=== PATIENT | female | born 1945 | race American Indian/Alaskan Native ===

== ENCOUNTER 2016-04-14 09:13 | Day surgery (SDC) | payer MEDICARE ==
[2016-04-14] MEDS ORDERED: NACL 0.9% 1000 ML 1,000 ML IV SCH (10:00)
[2016-04-14] MEDS ORDERED: WATER FOR IRRIG STERILE IR ONE (10:46)
[2016-04-14] MEDS ORDERED: DIPRIVAN 10 MG/ML IV ONE ×3 (10:48→12:56)
--- NOTE | 2016-04-14 10:49 | Anesthesia Consultation ---
Anesthesia Consult and Med Hx Date of service: 04/14/16 - Airway Anesthetic Teeth Evaluation: Good ROM Head & Neck: Adequate Mental/Hyoid Distance: Inadequate Mallampati Class: Class II Intubation Access Assessment: Probably Good - Pulmonary Exam CTA: Yes - Cardiac Exam Cardiac Exam: RRR - Pre-Operative Health Status ASA Pre-Surgery Classification: ASA3 Proposed Anesthetic Plan: MAC - Pulmonary Hx Smoking: Yes (prior smoker quit >20 years) - Cardiovascular System Hx Hypertension: Yes - Central Nervous System Hx Neuromuscular Disorder: No - Gastrointestinal Hx Gastroesophageal Reflux Disease: Yes (mild) - Endocrine Hx Insulin Dependent Diabetes: Yes Hx Hypothyroidism: Yes - Hematic Hx Anemia: No Hx Sickle Cell Disease: No - Other Systems Hx Alcohol Use: No Hx Substance Use: No Hx Cancer: No Hx Obesity: No - Additional Comments Anesthesia Medical History Comments: 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
--- NOTE | 2016-04-14 10:49 | Anesthesia Day of Surgery ---
Anesthesia Day of Surgery - Day of Surgery Patient Examined: Yes Patient H&P Reviewed: Yes Patient is NPO: Yes
--- NOTE | 2016-04-14 11:38 | Short Stay Summary ---
Short Stay Documentation Date of service: 04/14/16 Narrative H&P: The patient presents for evaluation of epigastric pain and rectal bleeding by EGD and colonoscopy. - History Past Medical History: arthritis, diabetes, hypertension Past Surgical History: hysterectomy, Other (thyroidectomy, history of pulmonary emboli) Social history: no significant social history - Allergies and Medications Current Medications: Allergies No Known Allergies Allergy (Verified 04/14/16 09:24) Home Medications Medication Instructions Recorded Confirmed Last Taken Type Levothyroxine 0.1 mcg PO DAILY 04/14/16 04/14/16 04/12/16 History Propranolol 120 mg PO DAILY 04/14/16 04/14/16 04/12/16 History Valsartan-Hctz 320-25 mg Tab 1 tab PO DAILY 04/14/16 04/14/16 04/13/16 History Vitamin B-12 1 tbsp PO DAILY 04/14/16 04/14/16 04/13/16 History Xarelto 20 mg PO DAILY 04/14/16 04/14/16 04/10/16 History amLODIPine 10 mg PO DAILY 04/14/16 04/14/16 04/12/16 History metFORMIN 500 mg PO DAILY 04/14/16 04/14/16 04/13/16 History Active Medications Sodium Chloride (Nacl 0.9% 1000 Ml) 1,000 mls @ 50 mls/hr IV DIRECT BEN - Physical exam General appearance: no acute distress, well-nourished Integumentary: no rash, no growths, no abnormal pigmentation HEENT: Atraumatic, PERRLA, EOMI, Mucous membr. moist/pink Lungs: Clear to auscultation, Normal air movement Breasts: deferred Heart: Regular rate, Normal S1, Normal S2, No murmurs, no Gallops Gastrointestinal: normoactive bowel sounds, no tenderness, no distended, no masses, no guarding, no organomegaly Female Genitourinary: deferred Rectal Exam: normal exam-external/orifice, other (No external hemorrhoids) Extremities: no ischemia, pulses intact, pulses symmetrical, No edema, Full ROM Neurological: Normal gait, Normal speech, Strength at 5/5 X4 ext, Normal tone, Sensation intact, Cranial nerves 3-12 NL - Brief post op/procedure progress note Findings: see dictations Estimated blood loss: none Pathology: list (biopsies of stomach antrum) Specimen disposition: to lab Condition: stable - Disposition Condition at discharge: Good Disposition: DISCHARGED TO HOME OR SELFCARE - Discharge Diagnoses (1) Epigastric pain Status: Acute (2) Rectal bleeding Status: Acute Short Stay Discharge Plan Activity: other (no driving for 24 hours) Weight Bearing Status: Full Weight Bearing Diet: diabetic Prescriptions: Hydrocortisone/Pramoxine [Proctofoam-Hc Foam] 10 gm RC BID #10 foam
--- NOTE | 2016-04-14 11:44 | Operative Report ---
Operative Report Operative Report: Date of procedure: 04/14/2016 Procedure: Esophagogastroduodenoscopy with antral biopsies for H. pylori. Preprocedure diagnosis: Epigastric pain Post procedure diagnosis: Mild erosive antral gastritis. Small hiatus hernia. Endoscopist: Dr. Montoya Anesthesia: Monitored anesthesia care per anesthesia department Medications: Propofol per anesthesia. Estimated blood loss: 0 After careful discussion of the nature and purpose of the procedure as well as details the technique risks benefits and alternatives consent was obtained. The patient was placed in the left lateral decubitus position and medicated per anesthesia. The tip of the [employer] 570 video scope was passed per orum under direct vision into the esophagus and advanced into the stomach and descending duodenum. The descending duodenum the duodenal bulb and pylorus were symmetrical and normal. The scope was withdrawn into the stomach and the stomach then gently insufflated with air. The antrum revealed a few patchy erosions. 3 biopsies were taken in the prepyloric area for H. pylori testing. The stomach was further insufflated and the scope was then retroflexed and partially withdrawn. The cardia, fundus, and body of the stomach were within normal limits and easily distensible.The scope was then withdrawn in the forward position. The esophagogastric junction was at 36 cm. A small hiatus hernia was present approximately 1-2 cm in length. The esophageal body was normal throughout. The procedure was was well tolerated and the patient was observed in recovery. Impressions: Small hiatus hernia. Mild erosive antral gastritis. Plan: Await pathology report. The patient will call the office in approximately 10 working days. Electronically signed: Miller Montoya MD
--- NOTE | 2016-04-14 11:47 | Operative Report ---
Operative Report Operative Report: Date of procedure: 04/14/2016 Preprocedure diagnosis: Rectal bleeding. Anticoagulation requirements for history of deep venous thrombosis Post procedure diagnosis: 2 plus internal hemorrhoids, moderate left colon diverticulosis. Procedure: Colonoscopy to the cecum Endoscopist: Dr. Montoya Anesthesia: Monitored anesthesia care per anesthesia department Estimated blood loss: 0 Medications: Monitored anesthesia care. See separate report by anesthesia for details. After careful discussion of the nature and purpose of the procedure as well as details of the technique risks benefits and alternatives the patient gave consent. Please see recent history and physical from the office. The patient was placed in the left lateral decubitus position and medicated per anesthesia. A rectal exam was performed sphincter tone was normal there were no masses palpable. The [employer] 570 scope was passed transanally and advanced under continuous direct vision without difficulty to the cecum. The colon was well prepared. The cecum was normal. The ascending colon was normal and on forward and retroflexed views. The transverse colon was normal. The descending colon and sigmoid colon revealed moderate diverticulosis throughout. The rectum was normal on forward view but revealed 2+ internal hemorrhoids on retroflexed view. The procedure was well-tolerated overall and the patient was observed in recovery. Conclusions: 2+ internal hemorrhoids. Moderate diverticulosis of the left colon. No evidence of neoplasia. Plan: Begin Proctofoam HC. High fiber diet and avoidance of constipation and straining. We will plan banding of hemorrhoids if not responding to conservative measures over the next 2-3 months. Signed electronically: Miller Montoya M.D.
[2016-04-14 12:04] VITALS: BP 133/83
--- NOTE | 2016-04-14 12:22 | Post Anesthesia Evaluation ---
- Post Anesthesia Evaluation Patient Participated: Yes Airway Patent: Yes Stable Respiratory Function: Yes Temp > 96.8F: Yes Pain Manageable: Yes Adequeate Hydration: Yes Anesthesia Complications: No Block Receding Appropriately: Not Applicable
== END 2016-04-14 09:14 | disposition home or self-care (01) ==
LOC: GIO 09:13
PROVIDERS: ATTEND Internal Medicine Gastroenterology
DX: K29.50 Unspecified chronic gastritis without bleeding (principal); K57.30 Diverticulosis of large intestine without perforation or abscess without bleeding; K44.9 Diaphragmatic hernia without obstruction or gangrene; K64.8 Other hemorrhoids; K21.9 Gastro-esophageal reflux disease without esophagitis; M19.90 Unspecified osteoarthritis, unspecified site; E11.9 Type 2 diabetes mellitus without complications; I10 Essential (primary) hypertension; E03.9 Hypothyroidism, unspecified; Z86.711 Personal history of pulmonary embolism; Z98.890 Other specified postprocedural states; Z90.710 Acquired absence of both cervix and uterus; Z86.718 Personal history of other venous thrombosis and embolism; Z87.891 Personal history of nicotine dependence
CPT/HCPCS: 43239; 45378; 88305; 88342; J2704; J7030